=== PATIENT | male | born 1970 | race Caucasian/White ===

== ENCOUNTER 2024-08-29 08:44 | Emergency (ER) | payer OTHER ==
--- NOTE | 2024-08-29 08:51 | ED ---
General Adult HPI - General Source: patient, RN notes reviewed Mode of arrival: wheelchair Limitations: no limitations <Prema Mendiola - Last Filed: 08/29/24 08:50> - General Source: patient, RN notes reviewed Mode of arrival: wheelchair Limitations: no limitations <Mian Sigala - Last Filed: 08/29/24 12:19> - General Stated complaint: Chest Pain Time Seen by Provider: 08/29/24 08:50 - History of Present Illness Initial comments: Quick note: 53-year-old male presented the ER for evaluation of right sided rib pain. He states this been ongoing for the past 1-1/2 to 2 weeks. He denies any injuries or traumas. He states his whole right side hurts. Pain is worse with inspiration. No chest pain. Patient believes he may have popped out a rib. No dizziness, lightheadedness, nausea or vomiting. (Prema Mendiola) - Related Data Previous Rx's Medication Instructions Recorded Cyclobenzaprine [Flexeril] 10 mg PO TID PRN #15 tab 08/29/24 HYDROcodone/APAP 7.5-325MG [[place] 1 tab PO Q6HR PRN 3 Days #12 tab 08/29/24 7.5-325] Ibuprofen [Motrin] 600 mg PO Q8HR PRN #30 tab 08/29/24 Allergies Allergy/AdvReac Type Severity Reaction Status Date / Time No Known Allergies Allergy Verified 08/29/24 09:00 Review of Systems ROS Other: All systems not noted in ROS Statement are negative. <Prema Mendiola - Last Filed: 08/29/24 08:50> ROS Other: All systems not noted in ROS Statement are negative. <Mian Sigala - Last Filed: 08/29/24 12:19> ROS Statement: Those systems with pertinent positive or pertinent negative responses have been documented in the HPI. General Exam <Prema Mendiola - Last Filed: 08/29/24 08:50> - General Exam Comments Initial Comments: Visual Physical Exam Vital signs reviewed General: Well-appearing, nontoxic, no acute distress. Patient holding right ribs Head: Normocephalic, atraumatic Eyes: PERRLA, EOMI ENT: Airway patent Chest: Nonlabored breathing Skin: No visual rash, normal skin tone Neuro: Alert and oriented 3 Musculoskeletal: No gross abnormalities (Prema Mendiola) Course Vital Signs 08/29/24 08/29/24 08/29/24 08:53 10:01 10:14 Temperature 98.2 F Pulse Rate 88 Pulse Rate [ 87 Pulse Oximetery ] Respiratory 22 22 Rate Blood Pressure 136/88 O2 Sat by Pulse 99 Oximetry 08/29/24 11:23 Temperature Pulse Rate 92 Pulse Rate [ Pulse Oximetery ] Respiratory 18 Rate Blood Pressure 157/92 O2 Sat by Pulse 97 Oximetry EKG Findings - EKG Comments: EKG Findings:: EKG performed at 8: 57 sinus rhythm with a rate of 96 ND 146 QRS 91 QT/QTc 358/412 - EKG Results: EKG: interpreted by ERMD <Mian Sigala - Last Filed: 08/29/24 12:19> Medical Decision Making <Prema Mendiola - Last Filed: 08/29/24 08:50> - Lab Data Result diagrams: 08/29/24 10:10 08/29/24 10:10 <Mian Sigala - Last Filed: 08/29/24 12:19> - Medical Decision Making I performed the quick note portion of this chart. Electronically signed by Prema Mendiola PA-C (Prema Mendiola) Was pt. sent in by a medical professional or institution ([facility] Castillo, ROTARY SHEAR OPERATOR, urgent care, hospital, or [facility]...) When possible be specific @ -No Did you speak to anyone other than the patient for history (EMS, parent, family, police, friend...)? What history was obtained from this source @ -No Did you review nursing and triage notes (agree or disagree)? Why? @ -I reviewed and agree with nursing and triage notes Were old charts reviewed (outside hosp., previous admission, EMS record, old EKG, old radiological studies, urgent care reports/EKG's, [facility] records)? Report findings @ -No old charts were reviewed Differential Diagnosis (chest pain, altered mental status, abdominal pain women, abdominal pain men, vaginal bleeding, weakness, fever, dyspnea, syncope, headache, dizziness, GI bleed, back pain, seizure, CVA, palpatations, mental health, musculoskeletal)? @ -Differential Chest Pain: Stable Angina, Unstable Angina, STEMI, NSTEMI Aortic Dissection, Pneumothorax, Musculoskeletal, Esophageal Spasm GERD, Cholecystitis, Pancreatitis, Zoster, this is not meant to be an all-inclusive list. EKG interpreted by me (3pts min.). @ -As above X-rays interpreted by me (1pt min.). @ -Chest x-ray with rib series no acute fracture, pneumothorax CT interpreted by me (1pt min.). @ -CT of the chest no acute pneumothorax rib fracture obvious abnormality U/S interpreted by me (1pt. min.). @ -None done What testing was considered but not performed or refused? (CT, X-rays, U/S, labs)? Why? @ -None What meds were considered but not given or refused? Why? @ -None Did you discuss the management of the patient with other professionals (professionals i.e. , PA, ROTARY SHEAR OPERATOR, lab, RT, psych nurse, director of social services, textiles printer, teacher, plant protection officer, residential case manager)? Give summary @ -No Was smoking cessation discussed for >3mins.? @ -No Was critical care preformed (if so, how long)? @ -No Were there social determinants of health that impacted care today? How? (Homelessness, low income, unemployed, alcoholism, drug addiction, transportation, low edu. Level, literacy, decrease access to med. care, longterm, rehab)? @ -No Was there de-escalation of care discussed even if they declined (Discuss DNR or withdrawal of care, Hospice)? DNR status @ -No What co-morbidities impacted this encounter? (DM, HTN, Smoking, COPD, CAD, Cancer, CVA, ARF, Chemo, Hep., AIDS, mental health diagnosis, sleep apnea, morbid obesity)? @ -None Was patient admitted / discharged? Hospital course, mention meds given and route, prescriptions, significant lab abnormalities, going to OR and other pertinent info. @ -Discharge patient had negative x-ray, CT and laboratory study patient is discharged in stable condition return parameters juliocesar. Undiagnosed new problem with uncertain prognosis? @ -No Drug Therapy requiring intensive monitoring for toxicity (Heparin, Nitro, Insulin, Cardizem)? @ -No Were any procedures done? @ -No Diagnosis/symptom? @ -Chest wall pain Acute, or Chronic, or Acute on Chronic? @ -Acute Uncomplicated (without systemic symptoms) or Complicated (systemic symptoms)? @ -Uncomplicated Side effects of treatment? @ -No Exacerbation, Progression, or Severe Exacerbation? @ -No Poses a threat to life or bodily function? How? (Chest pain, [place], [place], pneumonia, PE, COPD, DKA, ARF, appy, cholecystitis, CVA, Diverticulitis, Homicidal, Suicidal, threat to staff... and all critical care pts) @ -No (Mian Sigala) - Lab Data Lab Results 08/29/24 08/29/24 08/29/24 Range/Units 10:10 10:10 10:10 WBC 7.4 (3.8-10.6) k/uL RBC 4.72 (4.30-5.90) m/uL Hgb 16.0 (13.0-17.5) gm/dL Hct 46.1 (39.0-53.0) % MCV 97.6 (80.0-100.0) fL MCH 33.8 (25.0-35.0) pg MCHC 34.6 (31.0-37.0) g/dL RDW 11.3 L (11.5-15.5) % Plt Count 221 (150-450) k/uL MPV 6.7 Neutrophils % 72 % Lymphocytes % 17 % Monocytes % 8 % Eosinophils % 1 % Basophils % 0 % Neutrophils # 5.3 (1.3-7.7) k/uL Lymphocytes # 1.3 (1.0-4.8) k/uL Monocytes # 0.6 (0-1.0) k/uL Eosinophils # 0.1 (0-0.7) k/uL Basophils # 0.0 (0-0.2) k/uL D-Dimer 0.34 (<0.60) mg/L FEU Sodium 137 (137-145) mmol/L Potassium 4.6 (3.5-5.1) mmol/L Chloride 106 (98-107) mmol/L Carbon Dioxide 17 L (22-30) mmol/L Anion Gap 14 mmol/L BUN 20 (9-20) mg/dL Creatinine 0.78 (0.66-1.25) mg/dL Est GFR (CKD-EPI)AfAm >90 (>60 ml/min/1.73 sqM) Est GFR (CKD-EPI)NonAf >90 (>60 ml/min/1.73 sqM) Glucose 80 (74-99) mg/dL Calcium 9.6 (8.4-10.2) mg/dL Total Bilirubin 1.2 (0.2-1.3) mg/dL AST 41 (17-59) U/L ALT 39 (4-49) U/L Alkaline Phosphatase 72 (38-126) U/L Troponin I (0.000-0.034) ng/mL Total Protein 7.1 (6.3-8.2) g/dL Albumin 4.7 (3.5-5.0) g/dL 08/29/24 Range/Units 10:10 WBC (3.8-10.6) k/uL RBC (4.30-5.90) m/uL Hgb (13.0-17.5) gm/dL Hct (39.0-53.0) % MCV (80.0-100.0) fL MCH (25.0-35.0) pg MCHC (31.0-37.0) g/dL RDW (11.5-15.5) % Plt Count (150-450) k/uL MPV Neutrophils % % Lymphocytes % % Monocytes % % Eosinophils % % Basophils % % Neutrophils # (1.3-7.7) k/uL Lymphocytes # (1.0-4.8) k/uL Monocytes # (0-1.0) k/uL Eosinophils # (0-0.7) k/uL Basophils # (0-0.2) k/uL D-Dimer (<0.60) mg/L FEU Sodium (137-145) mmol/L Potassium (3.5-5.1) mmol/L Chloride (98-107) mmol/L Carbon Dioxide (22-30) mmol/L Anion Gap mmol/L BUN (9-20) mg/dL Creatinine (0.66-1.25) mg/dL Est GFR (CKD-EPI)AfAm (>60 ml/min/1.73 sqM) Est GFR (CKD-EPI)NonAf (>60 ml/min/1.73 sqM) Glucose (74-99) mg/dL Calcium (8.4-10.2) mg/dL Total Bilirubin (0.2-1.3) mg/dL AST (17-59) U/L ALT (4-49) U/L Alkaline Phosphatase (38-126) U/L Troponin I <0.012 (0.000-0.034) ng/mL Total Protein (6.3-8.2) g/dL Albumin (3.5-5.0) g/dL Disposition <Prema Mendiola - Last Filed: 08/29/24 08:50> Is patient prescribed a controlled substance at d/c from ED?: Yes When asked, does pt state using other controlled substances?: No If prescribed controlled substance>3 days was MAPS reviewed?: Prescribed <3 Days If opioid is for acute pain is fill amount 7 days or less?: Yes If Rx opioid, was Start Talking consent form obtained?: Yes Time of Disposition: 11:32 <Mian Sigala - Last Filed: 08/29/24 12:19> Clinical Impression: Chest wall muscle strain Disposition: HOME SELF-CARE Condition: Stable Instructions (If sedation given, give patient instructions): Chest Wall Pain (ED) Additional Instructions: Please return to the Emergency Department if symptoms worsen or any other concerns. Prescriptions: Cyclobenzaprine [Flexeril] 10 mg PO TID PRN #15 tab PRN Reason: Muscle Spasm Ibuprofen [Motrin] 600 mg PO Q8HR PRN #30 tab PRN Reason: Pain HYDROcodone/APAP 7.5-325MG [[place] 7.5-325] 1 tab PO Q6HR PRN 3 Days #12 tab PRN Reason: Pain Referrals: Nonstaff,Physician [Primary Care Provider] - 1-2 days
[2024-08-29 09:00] VITALS: TEMP 98.2
--- NOTE | 2024-08-29 09:24 | XR ---
EXAMINATION TYPE: XR ribs RT w pa chest xray DATE OF EXAM: 08/29/2024 9:19 AM COMPARISON: None. CLINICAL INDICATION: Male, 53 years old with history of pain x 1 week, TECHNIQUE: Single frontal view of the chest is obtained. A frontal and oblique images of the right-si ded ribs. FINDINGS: There is no focal air space opacity, pleural effusion, or pneumothorax seen. The cardiac silhouette size is within normal limits. Scoliosis is seen. Dedicated images of the right-sided ribs show no acute displaced fractures. No suspicious expansile, lytic, or sclerotic focal lesion is clearly seen. Overlying soft tissue is unremarkable. IMPRESSION: No acute process. [facility], , 08/29/2024 9:21 AM
[2024-08-29] MEDS: ONDANSETRON 4 MG/2 ML VIAL IVP STA (10:10)
[2024-08-29] MEDS: HYDROmorphone 0.5 MG/0.5 ML SYRINGE IVP STA ×2 (10:11→11:25)
[2024-08-29] MEDS: KETOROLAC 15 MG/ML 1 ML VIAL IVP STA (10:12)
[2024-08-29 10:26] LABS: Basophils % (A) 0 %; Eosinophils # (A) 0.1 k/uL (0-0.7); Eosinophils % (A) 1 %; HCT 46.1 % (39.0-53.0); Lymphocytes # (A) 1.3 k/uL (1.0-4.8); Lymphocytes % (A) 17 %; MCH 33.8 pg (25.0-35.0); MCHC 34.6 g/dL (31.0-37.0); MCV 97.6 fL (80.0-100.0); Mean Platelet Volume 6.7; Monocytes # (A) 0.6 k/uL (0-1.0); Monocytes % (A) 8 %; Neutrophils # (A) 5.3 k/uL (1.3-7.7); Neutrophils % (A) 72 %; Platelet Count 221 k/uL (150-450); RBC 4.72 m/uL (4.30-5.90); RDW 11.3 % (11.5-15.5); WBC 7.4 k/uL (3.8-10.6)
[2024-08-29 10:45] LABS: ALT 39 U/L (4-49); African American GFR (CKD) >90 (>60 ml/min/1.73 sqM); Albumin 4.7 g/dL (3.5-5.0); Anion Gap 14 mmol/L; Blood Urea Nitrogen 20 mg/dL (9-20); Calcium 9.6 mg/dL (8.4-10.2); Carbon Dioxide 17 mmol/L (22-30); Chloride 106 mmol/L (98-107); Glucose 80 mg/dL (74-99); Non-African American GFR(CKD) >90 (>60 ml/min/1.73 sqM); Sodium 137 mmol/L (137-145); Total Bilirubin 1.2 mg/dL (0.2-1.3); Total Protein 7.1 g/dL (6.3-8.2)
[2024-08-29 10:58] LABS: AST 41 U/L (17-59); Alkaline Phosphatase 72 U/L (38-126); Potassium 4.6 mmol/L (3.5-5.1)
--- NOTE | 2024-08-29 11:05 | CT ---
EXAMINATION TYPE: CT chest wo con DATE OF EXAM: 08/29/2024 COMPARISON: Same day chest and right rib x-ray HISTORY: rt side chest pain CT DLP: 461.2 mGycm. Automated Exposure Control for Dose Reduction was Utilized. TECHNIQUE: CT scan of the thorax is performed without IV contrast. FINDINGS: LUNGS: The lungs are grossly clear, there is no concerning parenchymal mass or focal consolidation id entified. There is no pleural effusion or pneumothorax seen. The tracheobronchial tree is patent. MEDIASTINUM: Lack of IV contrast is noted to limit evaluation for mediastinal and especially hilar ad enopathy. There are no definitive greater than 1 cm mediastinal lymph nodes. No cardiomegaly or per icardial effusion is seen. OTHER: No additional significant abnormality is seen. IMPRESSION: No acute findings identified on noncontrast CT. [facility], , 08/29/2024 11:03 AM
[2024-08-29 11:24] VITALS: BP 157/92; PULSE 92; RESP 18
[2024-08-29] MEDS: ORPHENADRINE 30 MG/ML 2 ML VIAL IVP STA (11:40)
== END 2024-08-29 11:43 | disposition home or self-care (01) ==
LOC: EC 08:44
DX: S29.011A Strain of muscle and tendon of front wall of thorax, initial encounter (principal); X50.9XXA Other and unspecified overexertion or strenuous movements or postures, initial encounter
CPT/HCPCS: 36415; 93005; 85379; 80053; 84484; 85025; 71101; 71250; 99285; 96374; 96375 ×3; 96376; J2360; J2405; J1885; J1171